=== PATIENT | female | born 2005 | race Two or more races ===

== ENCOUNTER 2025-03-19 07:31 | Observation (INO) | payer MEDICAID ==
[~2025-03-19] VITALS: Ht 162.6 cm; Wt 77.1 kg
[~2025-03-19 07:31] MED LIST: ACE650RS PR
[2025-03-19] MEDS ORDERED: METOCLOPRAMIDE HCL 5MG/ml INJ 2ml VIAL IV ONE (11:15)
[2025-03-19] MEDS ORDERED: KETOROLAC TROMETH 30 MG/ML 1ML VIAL IV ONE (11:15)
[2025-03-19] MEDS ORDERED: ONDANSETRON HCL 4 MG/2 ML VIAL IV ONE (11:15)
[2025-03-19] MEDS ORDERED: DexAMETHasone SOD PHOS 10MG/1ML VIAL INJ ONE ×2 (11:23→13:49)
[2025-03-19] MEDS ORDERED: ONDANSETRON HCL 4 MG/2 ML VIAL ONE (11:23)
[2025-03-19] MEDS ORDERED: MIDAZOLAM HCL 2MG/2ML 2ml VIAL (1mg/ml) ONE (11:23)
[2025-03-19] MEDS ORDERED: fentaNYL CITRATE 100 MCG/2 ML VL ONE (11:23)
[2025-03-19] MEDS ORDERED: LIDOCAINE 2% (LOCAL ANESTH.) PF 5ml SDV ONE (11:23)
[2025-03-19] MEDS ORDERED: PROPOFOL 10 MG/ML 20 ML IV ONE (11:24)
[2025-03-19] MEDS: ceFAZolin 2 GM/D5W50ml 50 ML IV ONE (11:30)
--- NOTE | 2025-03-19 12:19 | DVHOP2 ---
Discharge Orders Discharge Orders DISCHARGE WHEN CRITERIA MET DISCHARGE WHEN CRITERIA MET. Follow up: Two weeks Discharge Instructions: May need surgical admission due to high levels of pain Operative Rep- Outpatient Operative Report PRE-OP DIAGNOSIS: Right trimalleolar ankle fracture POST-OP DIAGNOSIS: Same ESTIMATED BLOOD LOSS: Minimal PROCEDURE: Open reduction internal fixation of bimalleolar ankle fracture right ankle Radiographic interpretation of the right ankle fluoroscopic Application of a right leg splint short SURGEON/FOOD STAND MANAGER: Amish Kaplan NP ANESTHESIA: General ANESTHESIOLOGIST: INFORMED CONSENT: Informed Consent: Discussed all inherent risks, complications, and alternatives treatments with the patient. Patient has agreed to proceed with the procedure. I have reviewed all pre-operative assessments including Labs, EKGs, and radiographic images that has been performed. The patient is a 19-year-old female who had a bimalleolar ankle fracture the patient has significant pain and discomfort in the right ankle the patient understands the risks and benefits of surgical and nonsurgical treatment of the right lower extremity Patient seen in the preoperatively in the right lower extremities monitor the patient's bedtime residual anesthesia was then induced I have asked him to hospital protocol the right lower extremity is prepped and draped standard fashion Ancef was given for infection prophylaxis the right lower extremities and prepped and draped in the standard fashion the patient is a rather bimalleolar ankle fracture was at his end and using a fluoroscopic imaging on AP and lateral x-ray the distal tip of the fibula was then measured the K-wire was then placed on an AP and lateral x-ray following that is a flower nail was then placed in the appropriate position once that is done 1 distal interlock screw was then placed in more proximal screw interlock was then placed based on the fact that the patient does not have a syndesmotic injury after the fibula fracture fixation is either rechecking a contrasted and ABD checks once her fractures are noted in the appropriate manner with a level of the fracture is noted without fibular nail is noted to be adequately reduced her adequate length and positioning once it was then that Emma malleolar fractures and checked based on the displacement and minimal size of the medial malleolar fracture I tried to attempt to put 2 4-0 cannulated screws whoever the fragments there was small therefore they use the [id number] clamp 1 K-wire was then placed in the prone position along the center patent checking AP and lateral x-ray 1 2 I was then done it was measured to be 50 mm in length once I was then dilated using a pin followed by compression I have 4.0 osseous screw with compression was then obtained with adequate compression and AP and lateral axillary then checked to ensure adequate positioning stress radiographs of the contrast was performed with the aid of pink compression to try those syndesmotic injury was noted once those are noted there was irrigated copious saline and then closed with fluoroscopic interpretation due for adequate fracture reduction with a stress radiographs to ensure adequate fracture fixation was then done on the wounds irrigated copiously and then irrigated out without 0 Vicryl 2-0 Monocryl in the right lower lung splint. The patient will be nonweightbearing on the right lower extremity PT OT out of bed LDL follow up in 2 weeks' time AMISH HOOK MD Mar 19, 2025 12:19
[2025-03-19] MEDS ORDERED: NITROGLYCERIN 0.4 MG SL TAB SL PRN (12:30)
[2025-03-19] MEDS ORDERED: MORPHINE SULFATE INJ 2 MG/ml SYRG IV PRN (12:30)
[2025-03-19 12:38] VITALS: PULSE 116; RESP 25; TEMP 97.8; O2SAT 93
[2025-03-19] MEDS: HYDROmorphone HCL 2 MG/ML VL/or syr IV PRN (12:48)
[2025-03-19] MEDS: ACETAMINOPHEN IV 1000 MG/100ML (10MG/ML) IV ONE (12:54)
[2025-03-19] MEDS ORDERED: EPINEPHrine HCL 1 MG/1 ML AMP ONE (13:49)
--- NOTE | 2025-03-19 13:53 | DVH ---
C-ARM FLUOROSCOPY: PROCEDURE: ORIF right ankle FLUOROSCOPY TIME: 30.9 sec DAP: 0.5 mgy FINDINGS: Spot intraoperative C arm radiographs demonstrating orif right ankle. IMPRESSION: Please refer to surgical report for detailed findings.
[2025-03-19 14:00] VITALS: BP 132/89; PULSE 102; RESP 14; O2SAT 97
== END 2025-03-19 16:00 | disposition left against medical advice (07) ==
LOC: SUR 07:31 → OVERFLOW 12:29
PROVIDERS: ADMIT Nurse Practitioner; ATTEND Nurse Practitioner
DX: S82.841A Displaced bimalleolar fracture of right lower leg, initial encounter for closed fracture (principal); S82.851A Displaced trimalleolar fracture of right lower leg, initial encounter for closed fracture; Z79.899 Other long term (current) drug therapy; Z98.890 Other specified postprocedural states; W18.39XA Other fall on same level, initial encounter; Y92.89 Other specified places as the place of occurrence of the external cause; Y93.89 Activity, other specified; Y99.8 Other external cause status
CPT/HCPCS: 27814; 73600; 76000; C1713; G0378; J0171; J0690; J1100; J1171; J2003; J2250; J2405; J2704; J3010; J0131